=== PATIENT | female | born 1970 | race Caucasian/White ===

== ENCOUNTER 2018-11-03 15:20 | Outpatient (CLI) | payer BC ==
--- NOTE | 2018-11-03 21:19 | RAD ---
RIGHT FOOT THREE VIEWS: 11/03/18 No fracture or area of bony destruction was seen. No periosteal reaction of concern was noted. A larg e calcaneal spur was seen. IMPRESSION: No acute bony findings. POS: HOME
--- NOTE | 2018-11-03 21:23 | RAD ---
LUMBAR SPINE THREE VIEWS: 11/03/18 Disc space narrowing is present at L5-S1. The other disc spaces appear normal. No fracture dislocatio n, or SI joint abnormality was seen. IMPRESSION: L5-S1 disc space narrowing. POS: HOME
[2018-11-03 21:36] LABS: #Basophils 0.1 thou/uL (0.0-0.2); #Eosinphils 0.1 thou/uL (0.0-0.7); #Lymphocytes 1.9 thou/uL (1.20-3.40); #Monocytes 0.3 thou/uL (0.11-0.59); #Neutrophils 2.6 thou/uL (1.40-6.50); %Basophils 1.5 % (0.0-1.0); %Eosinophils 1.3 % (0.0-10.0); %Monocytes 6.6 % (0.0-10.0); %Neutrophils 52.6 % (42.0-75.0); Mean Corpuscular HGB CONC 32.8 g/dL (32.0-36.0); Mean Corpuscular Hemoglobin 29.1 pg (27.0-31.0); Mean Corpuscular Volume 88.6 fL (78.0-98.0); Mean Platelet Volume 8.3 fL (7.4-10.4); Platelet Count 250 thou/uL (130-400); RBC Distribution Width 12.6 % (11.5-14.5); Red Blood Cell (RBC) Count 4.81 mill/uL (4.20-5.40)
[2018-11-03 21:54] LABS: ALT (SGPT) 13 U/L (8-55); AST (SGOT) 17 U/L (5-34); Albumin 4.5 g/dL (3.5-5.0); Alkaline Phosphatase 45 U/L (40-150); Anion Gap 10 mmol/L (10-20); BUN (Urea Nitrogen) 14 mg/dL (7.0-18.7); Bilirubin, Total 0.7 mg/dL (0.2-1.2); Calc. Creatinine Clearance 0 mL/min (70-130); Calcium 10.1 mg/dL (7.8-10.44); Carbon Dioxide 31 mmol/L (22-29); Cardiac Risk 2.7 (Less than 4.5); Chloride 103 mmol/L (98-107); Cholesterol 208 mg/dl (< 200 Desired); Estimated GFR-MDRD 82; Globulin 2.3 g/dL (2.4-3.5); Glucose 95 mg/dL (70-105); HDL Cholesterol 77 mg/dL (>60 Neg Risk); LDL Cholesterol, Calculated 121 mg/dL; Potassium 4.4 mmol/L (3.5-5.1); Protein, Total 6.8 g/dL (6.0-8.3); Sodium 140 mmol/L (136-145); Triglycerides 51 mg/dL (Less than 150)
== END 2018-11-03 15:21 | disposition home or self-care (01) ==
LOC: BURRAD 15:20
PROVIDERS: ATTEND Physician Assistant
DX: Z13.1 Encounter for screening for diabetes mellitus (principal); I42.9 Cardiomyopathy, unspecified; R23.3 Spontaneous ecchymoses; M79.671 Pain in right foot; M54.5 Low back pain; M48.07 Spinal stenosis, lumbosacral region
CPT/HCPCS: 36415; 72100; 80053; 80061; 84443; 85025